=== PATIENT | male | born 1950 | race Caucasian/White ===

== ENCOUNTER → 2021-08-04 | Day surgery (SDC) | payer MEDICARE, BC ==
[~2021-08-04] MED LIST: Ketamine 200 MG/20 ML MDV ONE; Lactated Ringers 1,000 ML IV SCH; Midazolam 1 MG/ML 2 ML SDV ONE; Propofol 200 MG/20 ML SDV ONE; fentaNYL 100 MCG/2 ML SDV ONE
[2021-08-04 11:14] VITALS: BP 137/76; PULSE 74
== END ==
LOC: CC.SDS 08:54
PROVIDERS: ATTEND Family Medicine
DX: D12.5 Benign neoplasm of sigmoid colon (principal); D12.0 Benign neoplasm of cecum; K57.30 Diverticulosis of large intestine without perforation or abscess without bleeding; N40.0 Benign prostatic hyperplasia without lower urinary tract symptoms; I10 Essential (primary) hypertension; E78.00 Pure hypercholesterolemia, unspecified; R73.9 Hyperglycemia, unspecified; E66.9 Obesity, unspecified; R53.83 Other fatigue; R06.83 Snoring; R06.02 Shortness of breath; Z79.899 Other long term (current) drug therapy; Z68.33 Body mass index [BMI] 33.0-33.9, adult
CPT/HCPCS: 00811; J2250; J2704; J3010; J7120

== ENCOUNTER 2022-07-07 18:47 | Emergency (ER) | payer MEDICARE, BC ==
[2022-07-07] MEDS: Ondansetron 4 MG/2 ML SDV IVPUSH PRN (19:14)
[2022-07-07] MEDS: HYDROmorphone 1 MG/ML Syringe IVPUSH ONE ×2 (19:14→22:25)
[2022-07-07 19:48] LABS: CHLORIDE,CL 102 mEq/L (98-106); SODIUM,NA 141 mEq/L (136-145)
[2022-07-07 19:49] LABS: ESTIMATED GFR 81 mL/min (>=60)
[2022-07-07] MEDS: Iopamidol 755 Mg/ML 100 ML Bottle IVPUSH ONE (23:44)
[2022-07-08 00:24] VITALS: BP 134/75; PULSE 80
[2022-07-08] MEDS: Acetaminophen 325 MG Tab PO ONE (00:32)
[2022-07-08] MEDS: Take Home: Levofloxacin 500 MG Tab, 1 Tab Pack PO ONE (01:59)
[2022-07-08] MEDS: Take Home: Ondansetron 4 MG Tab.DIS, 2 Tab Pack PO ONE (02:01)
[2022-07-08] MEDS: Take Home: Acetaminophen/HYDROcodone 325-5 MG, 2 Tab Pack PO ONE (02:02)
== END 2022-07-08 02:30 | disposition home or self-care (01) ==
LOC: CC.ED 18:47
DX: K80.00 Calculus of gallbladder with acute cholecystitis without obstruction (principal); E78.00 Pure hypercholesterolemia, unspecified; I10 Essential (primary) hypertension; Z79.899 Other long term (current) drug therapy
CPT/HCPCS: 36415; 74019; 74177; 80053; 82150; 83690; 85025; 96374; 96375; 96376; 99284; A9270; J1170; J2405; Q9967

== ENCOUNTER 2023-03-06 18:23 | Observation (INO) | payer MEDICARE, BC ==
[2023-03-06 18:47] LABS: BASOPHILS ABSOLUTE AUTO 0.03 10^3/uL (0.00-0.50); BASOPHILS PERCENT AUTO 0.5 % (0-1); EOSINOPHILS ABSOLUTE AUTO 0.25 10^3/uL (0.00-1.50); EOSINOPHILS PERCENT AUTO 4.3 % (0-6); HEMATOCRIT 42.9 % (42.0-52.0); HEMOGLOBIN 14.9 g/dL (14.0-18.0); IMMATURE GRAN ABSOLUTE AUTO 0.09 10^3/uL (0.00-0.49); IMMATURE GRAN PERCENT AUTO 1.5 % (0.0-4.9); LYMPHOCYTES ABSOLUTE AUTO 2.01 10^3/uL (0.60-5.00); LYMPHOCYTES PERCENT AUTO 34.3 % (24-44); MEAN CORPUSCULAR HEMOGLOBIN 32.4 pg (27.0-32.0); MEAN CORPUSCULAR HGB CONC 34.7 g/dL (32.0-36.0); MEAN CORPUSCULAR VOLUME 93.3 fL (83.0-97.0); MONOCYTES ABSOLUTE AUTO 0.55 10^3/uL (0.00-1.50); MONOCYTES PERCENT AUTO 9.4 % (0-10); NEUTROPHILS ABSOLUTE AUTO 2.93 x10^3/uL (1.80-8.00); PLATELET COUNT,PLT 147 10^3/uL (150-400); WHITE BLOOD CELL COUNT,WBC 5.9 10^3/uL (4.0-11.0)
[2023-03-06 18:48] LABS: APPEARANCE,URINE CLEAR (CLEAR); BILIRUBIN,URINE NEGATIVE (NEGATIVE); COLOR,URINE YELLOW (YELLOW); GLUCOSE,URINE NEGATIVE (NEGATIVE); KETONES,URINE NEGATIVE (NEGATIVE); LEUKOCYTE ESTERASE,URINE NEGATIVE (NEGATIVE); NITRITE,URINE NEGATIVE (NEGATIVE); OCCULT BLOOD,URINE SMALL (NEGATIVE); PH,URINE 5.5 (4.5-8.0); PROTEIN,URINE NEGATIVE (NEGATIVE); UROBILINOGEN,URINE 0.2 EU/dL (0.2-1.0)
[2023-03-06 18:58] LABS: BACTERIA,URINE NOT SEEN /HPF (NOT SEEN); EPITHELIAL CELLS,URINE NOT SEEN /HPF (NOT SEEN); MUCUS,URINE NOT SEEN /HPF (NOT SEEN); RBC,URINE NOT SEEN /HPF (0-5); WBC,URINE NOT SEEN /HPF (0-5)
[2023-03-06 19:02] LABS: ALANINE AMINOTRANSFERASE,ALT 44 U/L (12-78); ALBUMIN 3.5 g/dL (3.4-5.0); ALKALINE PHOSPHATASE 141 U/L (46-116); ASPARTATE AMNIOTRANSFERASE,AST 43 U/L (15-37); BILIRUBIN TOTAL 0.7 mg/dL (0.0-1.0); BLOOD UREA NITROGEN,BUN 16 mg/dL (7-18); C-REACTIVE PROTEIN 0.66 mg/dL (<=0.30); CALCIUM 8.7 mg/dL (8.4-10.1); CARBON DIOXIDE,CO2 28 mmol/L (21-32); CHLORIDE,CL 102 mEq/L (98-106); CREATINE KINASE,CK 79 U/L (35-232); CREATININE 0.9 mg/dL (0.7-1.3); GLUCOSE RANDOM 134 mg/dL (75-99); POTASSIUM,K 3.7 mEq/L (3.5-5.0); PROTEIN TOTAL,TP 7.1 g/dL (6.4-8.2); SODIUM,NA 142 mEq/L (136-145)
[2023-03-06 19:03] LABS: ESTIMATED GFR 91 mL/min (>=60)
[2023-03-06 19:04] LABS: ETHANOL BLOOD MEDICAL 333 mg/dL (0-3)
[2023-03-06] MEDS ORDERED: Iopamidol 755 Mg/ML 100 ML Bottle IVPUSH ONE (19:41)
[2023-03-06] MEDS ORDERED: Sodium Chloride 0.9% 10 ML Syringe FLUSH PRN (21:41)
[2023-03-06] MEDS ORDERED: Ondansetron 4 MG Tab.DIS PO PRN (21:41)
[2023-03-06] MEDS ORDERED: Ondansetron 4 MG/2 ML SDV IV PRN (21:41)
[2023-03-06] MEDS ORDERED: Sodium Chloride 0.9% 1,000 ML IV SCH (21:41)
[2023-03-06] MEDS: Acetaminophen 325 MG Tab PO PRN (22:17)
[2023-03-07 07:35] LABS: BASOPHILS ABSOLUTE AUTO 0.03 10^3/uL (0.00-0.50); BASOPHILS PERCENT AUTO 0.5 % (0-1); EOSINOPHILS PERCENT AUTO 3.7 % (0-6); HEMATOCRIT 38.9 % (42.0-52.0); HEMOGLOBIN 13.5 g/dL (14.0-18.0); IMMATURE GRAN ABSOLUTE AUTO 0.05 10^3/uL (0.00-0.49); IMMATURE GRAN PERCENT AUTO 0.9 % (0.0-4.9); LYMPHOCYTES ABSOLUTE AUTO 1.37 10^3/uL (0.60-5.00); LYMPHOCYTES PERCENT AUTO 25.1 % (24-44); MEAN CORPUSCULAR HEMOGLOBIN 32.7 pg (27.0-32.0); MEAN CORPUSCULAR HGB CONC 34.7 g/dL (32.0-36.0); MEAN CORPUSCULAR VOLUME 94.2 fL (83.0-97.0); MONOCYTES ABSOLUTE AUTO 0.56 10^3/uL (0.00-1.50); MONOCYTES PERCENT AUTO 10.3 % (0-10); NEUTROPHILS ABSOLUTE AUTO 3.25 x10^3/uL (1.80-8.00); NEUTROPHILS PERCENT AUTO 59.5 % (41-71); PLATELET COUNT,PLT 138 10^3/uL (150-400); RED BLOOD CELL COUNT 4.13 x10^6/uL (4.50-6.00); WHITE BLOOD CELL COUNT,WBC 5.5 10^3/uL (4.0-11.0)
[2023-03-07 07:54] LABS: ALBUMIN 3.2 g/dL (3.4-5.0); BILIRUBIN TOTAL 0.6 mg/dL (0.0-1.0); CALCIUM 8.5 mg/dL (8.4-10.1); CREATININE 0.8 mg/dL (0.7-1.3); EST CRCL DRUG DOSING (CG) 90.2 mL/min; POTASSIUM,K 3.7 mEq/L (3.5-5.0); PROTEIN TOTAL,TP 6.6 g/dL (6.4-8.2)
[2023-03-07] MEDS: Acetaminophen 325 MG Tab PO PRN (07:54)
[2023-03-07 07:56] VITALS: BP 168/87
[2023-03-07] MEDS ORDERED: LOSARTAN POTASSIUM 50 MG PO SCH (08:00)
[2023-03-07] MEDS ORDERED: amLODIPine 2.5 MG Tab PO SCH (08:00)
[2023-03-07] MEDS ORDERED: Losartan 100 MG Tab PO SCH (08:00)
[2023-03-07] MEDS ORDERED: Ezetimibe 10 MG Tab PO SCH (08:00)
[2023-03-07] MEDS ORDERED: atorvaSTATin 20 MG Tab PO SCH (08:00)
[2023-03-07 08:27] VITALS: PULSE 88
== END 2023-03-07 10:51 | disposition home or self-care (01) ==
LOC: CC.ED 18:23 → CC.MS 20:30 → UNDOADMOB 20:30 → CC.MS 20:49
PROVIDERS: ADMIT Nurse Practitioner Family; ATTEND Nurse Practitioner Family
DX: S40.812A Abrasion of left upper arm, initial encounter (principal); S00.81XA Abrasion of other part of head, initial encounter; F10.920 Alcohol use, unspecified with intoxication, uncomplicated; R42 Dizziness and giddiness; I10 Essential (primary) hypertension; E78.00 Pure hypercholesterolemia, unspecified; Z79.899 Other long term (current) drug therapy; W10.8XXA Fall (on) (from) other stairs and steps, initial encounter
CPT/HCPCS: 36415; 70450; 71260; 72125; 74177; 80053; 80307; 81001; 82550; 85025; 86140; 93005; 93010; 99285; A9270-GY; G0378; J7030; Q9967

== ENCOUNTER 2024-05-02 12:09 | Emergency (ER) | payer MEDICARE, BC ==
[2024-05-02 12:12] VITALS: BP 145/84; PULSE 112
[2024-05-02 12:36] LABS: BASOPHILS ABSOLUTE AUTO 0.04 10^3/uL (0.00-0.50); BASOPHILS PERCENT AUTO 0.3 % (0-1); EOSINOPHILS ABSOLUTE AUTO 0.11 10^3/uL (0.00-1.50); EOSINOPHILS PERCENT AUTO 0.9 % (0-6); HEMATOCRIT 45.9 % (42.0-52.0); HEMOGLOBIN 15.4 g/dL (14.0-18.0); IMMATURE GRAN ABSOLUTE AUTO 0.04 10^3/uL (0.00-0.49); IMMATURE GRAN PERCENT AUTO 0.3 % (0.0-4.9); LYMPHOCYTES ABSOLUTE AUTO 3.11 10^3/uL (0.60-5.00); LYMPHOCYTES PERCENT AUTO 24.9 % (24-44); MEAN CORPUSCULAR HEMOGLOBIN 29.1 pg (27.0-32.0); MEAN CORPUSCULAR HGB CONC 33.6 g/dL (32.0-36.0); MEAN CORPUSCULAR VOLUME 86.6 fL (83.0-97.0); MONOCYTES ABSOLUTE AUTO 0.91 10^3/uL (0.00-1.50); MONOCYTES PERCENT AUTO 7.3 % (0-10); NEUTROPHILS ABSOLUTE AUTO 8.28 x10^3/uL (1.80-8.00); NEUTROPHILS PERCENT AUTO 66.3 % (41-71); PLATELET COUNT,PLT 241 10^3/uL (150-400); WHITE BLOOD CELL COUNT,WBC 12.5 10^3/uL (4.0-11.0)
[2024-05-02] MEDS: Acetaminophen 325 MG Tab PO ONE (12:40)
[2024-05-02] MEDS: LORazepam 0.5 MG Tab PO ONE (12:43)
[2024-05-02 12:49] LABS: ALANINE AMINOTRANSFERASE,ALT 30 U/L (12-78); ALKALINE PHOSPHATASE 187 U/L (46-116); ASPARTATE AMNIOTRANSFERASE,AST 26 U/L (15-37); BILIRUBIN TOTAL 1.2 mg/dL (0.0-1.0); BLOOD UREA NITROGEN,BUN 13 mg/dL (7-18); CALCIUM 8.8 mg/dL (8.4-10.1); CARBON DIOXIDE,CO2 26 mmol/L (21-32); CHLORIDE,CL 103 mEq/L (98-106); EST CRCL DRUG DOSING (CG) 68.94 mL/min; ESTIMATED GFR 80 mL/min (>=60); GLUCOSE RANDOM 144 mg/dL (75-99); PROTEIN TOTAL,TP 7.5 g/dL (6.4-8.2); SODIUM,NA 145 mEq/L (136-145)
[2024-05-02 12:50] LABS: C-REACTIVE PROTEIN < 0.50 mg/dL (<=0.50)
[2024-05-02 12:51] LABS: LACTIC ACID 5.2 mmol/L (0.4-2.0)
[2024-05-02 13:37] LABS: CORONAVIRUS COVID-19 NAA NEGATIVE (NEGATIVE); INFLUENZA A NAA NEGATIVE (NEGATIVE); INFLUENZA B NAA NEGATIVE (NEGATIVE)
[2024-05-02] MEDS: Take Home: LORazepam 0.5 MG Tab, 2 Tab Pack PO ONE (13:46)
== END 2024-05-02 13:54 | disposition home or self-care (01) ==
LOC: CC.ED 12:09
DX: F10.130 Alcohol abuse with withdrawal, uncomplicated (principal); I10 Essential (primary) hypertension; E78.00 Pure hypercholesterolemia, unspecified; Z79.899 Other long term (current) drug therapy; Y90.9 Presence of alcohol in blood, level not specified
CPT/HCPCS: 0240U; 36415; 71046; 80053; 80307; 83605; 83735; 85025; 86140; 87428-QW; 99285; A9270-GY